=== PATIENT | male | born 1985 | race Two or more races ===

== ENCOUNTER 2021-04-06 21:14 | Emergency (ER) | payer OTHER ==
[2021-04-06 21:51] LABS: BASOPHILS % (AUTO) 0.2 %; EOSINOPHILS # (AUTO) 0.2 10^3/uL (0.0-0.7); EOSINOPHILS % (AUTO) 1.5 %; HCT - HEMATOCRIT 42.2 % (42.0-52.0); HGB - HEMOGLOBIN 14.2 g/dL (14.0-18.0); LYMPHOCYTES # (AUTO) 3.7 10^3/uL (1.5-3.5); LYMPHOCYTES % (AUTO) 26.4 %; MEAN CORPUSCULAR HEMOGLOBIN 30.3 pg (27.0-31.0); MEAN CORPUSCULAR HGB CONC 33.6 g/dL (32.0-36.0); MEAN CORPUSCULAR VOLUME 90.2 fL (80.0-94.0); MEAN PLATELET VOLUME 9.1 fL (7.4-11.4); MONOCYTES # (AUTO) 1.1 10^3/uL (0.0-1.0); MONOCYTES % (AUTO) 7.8 %; NEUTROPHILS % (AUTO) 63.7 %; PLT - PLATELET COUNT 355 10^3/uL (130-450); RED BLOOD COUNT 4.68 10^6/uL (4.70-6.10); RED CELL DISTRIBUTION WIDTH 14.3 % (12.0-15.0); WHITE BLOOD COUNT 14.1 x10^3/uL (4.8-10.8)
[2021-04-06 22:05] LABS: ALBUMIN 4.5 g/dL (3.2-5.5); ALBUMIN/GLOBULIN RATIO 1.5 (1.0-2.2); BILIRUBIN,TOTAL 0.6 mg/dL (0.2-1.0); CALCIUM 9.6 mg/dL (8.5-10.3); CREATININE 0.9 mg/dL (0.6-1.2); POTASSIUM 3.4 mmol/L (3.5-5.0); TOTAL PROTEIN 7.5 g/dL (6.7-8.2)
--- NOTE | 2021-04-06 23:58 | ED Physician Documentation ---
PD HPI ABD PAIN - Stated complaint Stated Complaint: ABD PX,FATIGUE - Chief complaint Chief Complaint: Abd Pain - History obtained from History obtained from: Patient - History of Present Illness Timing - onset: How many weeks ago (episodic x 1 week) Timing - details: Abrupt onset, Intermittant Pain level now: 6 Quality: Pain Location: Epigastric, LLQ Improved by: Other (nothing) Worsened by: Palpation Associated symptoms: No: Fever, Nausea, Vomiting, Diarrhea, Constipation - Additional information Additional information: chief c/o of abdominal pain. He describes episodic epigastric burning pain over past week, with several days of LLQ pain as well. He was recently seen at [facility] and was prescribed PPI. He also notes diffuse, nonpruritic rash although he has had the same rash episodically over past several weeks and has been evaluated for this without apparent diagnosis . Review of Systems Constitutional: reports: Reviewed and negative Cardiac: reports: Reviewed and negative Respiratory: reports: Reviewed and negative GI: reports: Abdominal Pain. denies: Nausea, Vomiting, Constipation, Diarrhea Skin: reports: Rash PD PAST MEDICAL HISTORY - Past Medical History Past Medical History: No - Past Surgical History Past Surgical History: No - Present Medications Home Medications: Ambulatory Orders Medication Instructions Recorded Confirmed Cetirizine [ZyrTEC] 10 mg PO ONCE 04/06/21 04/06/21 FLUoxetine [PROzac] 20 mg PO DAILY 04/06/21 04/06/21 Omeprazole 40 mg PO DAILY 04/06/21 04/06/21 - Allergies Allergies/Adverse Reactions: Allergies Allergy/AdvReac Type Severity Reaction Status Date / Time No Known Drug Allergies Allergy Verified 04/06/21 21:39 - Social History Does the pt smoke?: No Smoking Status: Never smoker Does the pt drink ETOH?: No Does the pt have substance abuse?: No - Immunizations Immunizations are current?: Yes - POLST Patient has POLST: No PD ED PE NORMAL - Vitals Vital signs reviewed: Yes - General General: Alert and oriented X 3, No acute distress, Well developed/nourished - HEENT HEENT: Moist mucous membranes - Neck Neck: Supple, no meningeal sign - Cardiac Cardiac: RRR, No murmur - Respiratory Respiratory: No respiratory distress, Clear bilaterally - Abdomen Abdomen: Soft, Non distended, Other (mild TTP LLQ without rebound or guarding. remainder of abdominal exam, including epigastrium, is nontender) PD ED PE EXPANDED - Derm Derm: Rash (diffuse flat erythematous macular exanthem on trunk, extremities; sparing of palms, soles, face/scalp) Results - Vitals Vitals: Oxygen O2 Source Room air - Labs Labs: Laboratory Tests 04/06/21 04/06/21 21:47 21:47 WBC 14.1 H RBC 4.68 L Hgb 14.2 Hct 42.2 MCV 90.2 MCH 30.3 MCHC 33.6 RDW 14.3 Plt Count 355 MPV 9.1 Neut # (Auto) 9.0 H Lymph # (Auto) 3.7 H Burnet # (Auto) 1.1 H Eos # (Auto) 0.2 Baso # (Auto) 0.0 Absolute Nucleated RBC 0.00 Nucleated RBC % 0.0 Sodium 139 Potassium 3.4 L Chloride 99 L Carbon Dioxide 28 Anion Gap 12.0 BUN 12 Creatinine 0.9 Estimated GFR (MDRD) 95 Glucose 94 Calcium 9.6 Total Bilirubin 0.6 AST 17 ALT 19 Alkaline Phosphatase 58 Total Protein 7.5 Albumin 4.5 Globulin 3.0 Albumin/Globulin Ratio 1.5 Lipase 28 - Rads (name of study) CT A/P with IV contrast Radiology: Prelim report reviewed, See rad report PD MEDICAL DECISION MAKING - ED course Complexity details: reviewed results, re-evaluated patient, considered differential, d/w patient ED course: patient says his rash is a recurrent/ongoing issue; I suspect this is unrelated to his abdominal complaints. No source/etiology for his abdominal pain is demonstrated on CT. An incidental finding of numerous liver lesions is noted, which radiologist interprets as "probably benign cysts and/or hamartomas". I reviewed these results with patient and instructed him to follow up with his primary care provider, as further tests might be needed regarding this CT finding. His epigastric burning might be due to PUD, GERD, gastritis. I encouraged him to follow up with his primary care for this as well, and to con tinue the PPI he was recently prescribed. He is in NAD on reevaluation Departure - Departure Disposition: 01 Home, Self Care Clinical Impression: Abdominal pain Qualifiers: Abdominal location: generalized Qualified Code(s): R10.84 - Generalized abdominal pain Condition: Good Instructions: ED Abdominal Pain Unkn Cause Follow-Up: NAY Patrick [Provider Group] Discharge Date/Time: 04/07/21 04:45
[2021-04-07] MEDS ORDERED: IOPAMIDOL-300 100 ML VIAL ONE (00:35)
[2021-04-07] MEDS ORDERED: IOPAMIDOL-300 100 ML VIAL IVP ONE (01:20)
[2021-04-07 04:19] VITALS: BP 129/78
--- NOTE | 2021-04-07 08:41 | CT Report ---
PROCEDURE: Abdomen/Pelvis W INDICATIONS: LLQ pain CONTRAST: IV CONTRAST: Isovue 300 ml: 100 PO CONTRAST: *NO PO CONTRAST TECHNIQUE: After the administration of intravenous contrast, 5 mm thick sections acquired from the diaphragms to the symphysis. 5 mm thick coronal and sagittal reformats were acquired. For radiation dose reducti on, the following was used: automated exposure control, adjustment of mA and/or kV according to misha ent size. COMPARISON: None. FINDINGS: Image quality: Excellent. ABDOMEN: Lung bases: There is left basilar atelectasis. Heart size is normal. Small hiatal hernia. Solid organs: Liver and spleen are normal in size and enhancement. There are multiple low density no dules in liver, most likely hepatic cysts; many lesions are too small to further characterize. Gallbl adder is normal. Biliary system is non dilated. Pancreas enhances normally. No adrenal nodules. K idneys demonstrate normal size and enhancement, without hydronephrosis. Peritoneum and bowel: Bowel loops demonstrate normal wall thickness and caliber. Normal appendix No free fluid or air. Nodes and vessels: No retroperitoneal or mesenteric adenopathy by size criteria. Aorta and inferior vena cava are normal in size. Miscellaneous: Tiny fat-containing umbilical hernia. PELVIS: Genitourinary: Bladder wall thickness is normal. Miscellaneous: No inguinal hernias or adenopathy. Bones: No suspicious bony lesions. No vertebral body compression fractures. [id number] degen erative disc disease in lumbar spine. There is a Schmorl's node in the inferior endplate of L1. IMPRESSION: 1. No acute abnormalities in abdomen or pelvis. 2. Multiple low-density nodules in liver are most likely hepatic cysts; many lesions are too small to further characterize, therefore, considered indeterminate. No significant discrepancy with the preliminary interpretation. Reviewed by: Twila Martinez MD on 04/07/2021 8:40 AM PDT Approved by: Twila Martinez MD on 04/07/2021 8:40 AM PDT Station ID: [id number]
== END 2021-04-07 04:45 | disposition home or self-care (01) ==
LOC: ED 21:14
DX: R10.84 Generalized abdominal pain (principal); R21 Rash and other nonspecific skin eruption; R93.2 Abnormal findings on diagnostic imaging of liver and biliary tract
CPT/HCPCS: 36415; 74177; 80053; 83690; 85025; 99284; Q9967

== ENCOUNTER 2023-11-30 12:45 | Outpatient (CLI) | payer OTHER ==
--- NOTE | 2023-11-30 13:28 | Sleep Patient Instructions ---
Sleep Center Visit Summary - Patient Visit Information Reason for Visit: Initial consult for evaluation of sleep disordered breathing and other sleep issues. - Patient Instructions Instructions Attached: Sleep Study Home Monitor Additional Instructions: You will be completing a sleep study, either an in-lab polysomnography (PSG) or home sleep study (HST). You will follow-up in the sleep care office after the sleep study is completed to hear the results and talk about therapy, if needed. You will be called by our office staff to schedule this appointment, but you may contact us with any questions. - Clinic Information Contact: [facility] [address] [place] [address] [email or web address] T: [phone]
--- NOTE | 2023-11-30 13:33 | SLEEP CARE CONSULTATION ---
Information from patient questionnaire entered by Ronda Brooks. I have reviewed and concur with the information entered by Ronda Brooks. This document represents the service I personally performed and the decisions made by me, Gosia Hatch ARNP. History of Present Illness Service Date and Time: 11/30/2023 1245 Reason for Visit: New patient Chief Complaint: reports: Insomnia, Snoring, Excessive daytime sleepiness, Fatigue Date of Onset: 2YRS Usual bedtime: 0300 Time it takes to fall asleep: 15-45MINS Snores at night: Yes Observed to quit breathing while asleep: No Sleeps alone due to snoring: No Number of times waking at night: 2-3 Reasons for waking at night: reports: Other (UNKNOWN). denies: Choking, Snoring, Gasping for air Toss, Turn, or Twitch while sleeping: Yes Recalls having dreams: Yes Usually gets out of bed at: 1100 Feels refreshed in the morning: No Morning headache: Yes (1-3 times a week, last about an hour) Sleepy or fatigued during the day: Yes Ever fallen asleep while driving: No Takes day naps: Yes (very seldom, 1-3 times a week maybe) Dreams during day naps: No Prior sleep studies: No Additional HPI information: I had the pleasure of seeing LUIGI FRANCO today regarding the possibility of him having a sleep disorder. His current complaints are insomnia, snoring, excessive daytime sleepiness and fatigue. He says 6 weeks ago his dentist told him his airway was very small and recommended that he have a sleep study. He was medically from the [place] last May. 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 He goes to sleep between 3-4 AM and gets up between 10-2 PM. He rarely feels rested when he gets up. He has been diagnosed with Porphyria. He says he snores and his has mentioned that she has heard his breath differently but has not thought he stopped breathing at night. - Parasomnia Symptoms Ever been unable to move upon waking from sleep: No Walks in sleep: No Talks in sleep: Yes Ever acted out dreams in sleep: No Ever felt weak in the knees when startled or emotional: Yes Bothered by creepy, crawly, restless sensations in legs: No Problems with memory or concentration: Yes (memory more recent, concentration a little bit) Subjective Initial [place] Sleepiness Scale score: 8 (11/30/2023) Past Medical History Past Medical History: reports: Anxiety, Other (Porphyria) Social History The patient's occupation is a AM. Patient is and lives in [place]. Have you smoked in the past 12 months: Yes Cigarettes per day (20/pack): 10 (working on quitting) Years of smokin Smoking Pack Years: 8.5 Alcohol use: Yes Alcohol amount and frequency: 1-2 drinks a day average Caffeine use: Yes Caffeine amount and frequency: 2 drinks daily, sometimes 3 Family History Family history of sleep disordered breathing: No Allergies and Home Medications Known drug allergies: No Drug allergies reviewed: Yes Home medication list reviewed: Yes (as listed) Allergy and home medication list: Allergies No Known Drug Allergies Allergy (Verified 11/28/23 10:16) Home Medications Medication Instructions Recorded Confirmed Last Taken Type Cetirizine [ZyrTEC] 10 mg PO ONCE 04/06/21 11/30/23 Unknown History FLUoxetine [PROzac] 20 mg PO DAILY 04/06/21 11/30/23 Unknown History Lactobacillus Combination No.4 See Rx Instructions .ROUTE .COMPLEX 11/30/23 11/30/23 Unknown History [Probiotic] Review of Systems Weight gain over past 5 years: 25 Weight loss over past 5 years: 20 Cardiovascular: reports: chest pain, irregular heart rate or pulse. denies: high blood pressure Respiratory: reports: wheeze Gastrointestinal: reports: heartburn, nausea, vomitting, diarrhea, abdominal pain Neurological: reports: headaches Psychiatric: reports: anxiety, depression Ear/Nose/Throat: reports: nasal congestion, sinus problems, wisdom teeth removed. denies: tonsillectomy Endocrine: reports: sluggishness Musculoskeletal: reports: joint pain, neck pain, back pain, joint swelling, muscle pain or cramping, mobility problems Immunologic: reports: rash, itching Physical Exam Vital signs obtained and entered by: RONDA Akers MA Blood Pressure: 129/84 (LEFT ARM) Cuff size: long Heart Rate: 88 O2 Saturation: 99 Height: 6 ft 0.25 in Weight: 244 lb 12.8 oz Body Mass Index: 32.9 BMI Classification: Obese Neck circumference: 17 Mouth and throat: narrow oropharynx Soft palate: long Hard palate: normal Uvula: normal Uvula visualization: 0% Mallampati Class IV Tongue: enlarged in size with teeth verduzco on lateral edges Tonsils: 2+ Neck: normal w/o lymphadenopathy or thyromegaly Heart: regular rate and rhythm Lungs: clear bilaterally Impression and Plan 1. Suspected Obstructive Sleep Apnea-Hypopnea Syndrome, as suggested by a history of loud and irregular snoring, morning headache, unrefreshed sleep, cognitive impairment, and excessive daytime sleepiness. Narrow oropharynx and obesity are common predisposing factors for obstructive sleep apnea-hypopnea syndrome. I recommend proceeding to polysomnography to confirm the diagnosis and to assess severity. If the patient has significant sleep disordered br eathing, a manual CPAP titration study will also be performed to find the optimal treatment pressure. I informed the patient of what the sleep studies involve and after some discussion, obtained agreement to proceed. The pathophysiology of obstructive sleep apnea-hypopnea syndrome was discussed with the patient and health risks of cardiovascular and cerebrovascular disease if not treated. Risks of drowsy driving discussed in detail and patient advised to avoid long distance driving and to insole tack puller hand at the first sign of drowsiness. Patient agreed to plan. * Schedule polysomnography. * Avoid long distance driving or driving when feeling sleepy. * Avoid alcohol, sedative and muscle relaxant around bedtime. * Attempt to lose weight. * Review instructions provided by trained office staff on how to prepare for the sleep study. * Return for follow-up after sleep study completed. Counseling Topics: Weight loss health impact Plan: PSG and followup Visit Type: In Office Time Spent with Patient (minutes): 38 Provider Statement: I spent 100% of the Face to Face Visit with the patient with greater than 50% spent counseling the patient and coordination of care.
[2023-11-30 14:13] VITALS: BP 129/84; O2SAT 99
== END 2023-11-30 12:46 | disposition home or self-care (01) ==
LOC: SC 12:45
PROVIDERS: ATTEND Nurse Practitioner Family
DX: G47.10 Hypersomnia, unspecified (principal); R06.83 Snoring; R51.9 Headache, unspecified; G47.8 Other sleep disorders; R41.89 Other symptoms and signs involving cognitive functions and awareness; F17.210 Nicotine dependence, cigarettes, uncomplicated; R53.83 Other fatigue; E66.9 Obesity, unspecified; Z68.32 Body mass index [BMI] 32.0-32.9, adult
CPT/HCPCS: 99203; 99212

== ENCOUNTER 2023-12-23 13:50 | Outpatient (CLI) | payer OTHER | END 2023-12-23 13:51 | disposition home or self-care (01) | LOC: SC 13:50 | PROVIDERS: ATTEND Nurse Practitioner Family | DX: G47.33 Obstructive sleep apnea (adult) (pediatric) (principal); R09.02 Hypoxemia; E66.9 Obesity, unspecified; Z68.33 Body mass index [BMI] 33.0-33.9, adult | CPT/HCPCS: 95806 ==

== ENCOUNTER 2024-01-25 14:36 | Outpatient (CLI) | payer OTHER ==
--- NOTE | 2024-01-25 15:04 | Sleep Patient Instructions ---
Sleep Center Visit Summary - Patient Visit Information Reason for Visit: Sleep study follow-up - Patient Instructions Instructions Attached: CPAP Additional Instructions: You are being started on CPAP therapy with pressure setting at 4-15 cmH2O. You will need to call the sleep care office to set up your follow up once you have your CPAP machine to check compliance and response to therapy at that time. You may call the office with any concerns about pressure feeling too low or too much for adjustment, if needed. You should contact DME supplier for any questions or concerns about mask or equipment. Please call office to schedule a follow up appointment in the sleep care office one month after obtaining new device. - Clinic Information Contact: [facility] [address] [place] [address] [email or web address] T: [phone]
--- NOTE | 2024-01-25 15:07 | SLEEP CARE CONSULTATION ---
Information from patient questionnaire entered by Radha Brooks. I have reviewed and concur with the information entered by Radha Brooks. This document represents the service I personally performed and the decisions made by me, Gosia Hatch ARNP. History of Present Illness Service Date and Time: 01/25/2024 1436 Initial [place] Sleepiness Scale score: 8 (11/30/2023) Current [place] Sleepiness Scale score: 8 (01/25/24) Additional HPI information: LUIGI FRANCO returns for follow up and results of the recently performed home sleep study. The sleep study done on 12/24/2023 showed moderate obstructive sleep apnea with an average AHI of 19.6 and cabrera oxygen saturation of 81%. I explained the pathophysiology behind obstructive sleep apnea. We then spent quite a bit of time discussing different treatment options. For mild obstru ctive sleep apnea, surgery and oral appliance are alternatives to nasal CPAP therapy but in moderate or severe cases, nasal CPAP is the most effective and reliable treatment. Because apnea is primarily in supine position, then positional management therapy could be effective. Methods discussed such as positioning with pillows, using a T-shirt with tennis balls in the back or commercial products that have a pillow format on back to prevent supine sleep. I reviewed the impact of weight changes on sleep apnea and strongly recommended losing weight. After some discussion, the patient opted to go with the nasal CPAP therapy. Nasal autoCPAP set at 4-15 cmH20 will be ordered with rationale explained. A manual titration study will be ordered if unable to find optimal pressure with office adjustments. I explained how CPAP machine works and what to expect when using the machine. Using CPAP every night in order to get used to it was emphasized. Patient advised to put CPAP mask on before getting into bed so as not to fall asleep without CPAP. To assist acclimation to CPAP use, it could also be used for a short time during day while reading or watching TV. The patient was instructed to call the CPAP supplier to discuss any mechanical problem that may occur. If the mask given is uncomfortable or is difficult to keep on through the night even with adjustment, contact the CPAP supplier as many will replace with another mask style if notified before 30 days. If snoring or perceives is not getting enough air or too much air from the machine, notify this office. Patient counseled not drink alcohol less than 4 hours before bedtime as it can increase snoring and apnea. Patient was cautioned about risks of drowsy driving until sleepiness symptoms resolve. Patient denies drowsy driving. Sleep Study - Results Type of Sleep Study: Home sleep study (COMPLETED 02/04/24) Prior sleep studies: No Polysomnography/Home Sleep Study results: Physician Impression: The quality of the study is good. The length of the study is adequate (> 240 minutes). Please also see the tabulated and graphic data. 1. Obstructive Sleep Apnea-Hypopnea (ICD-10 G47.33), moderate, with an AHI of 19.6/hr and cabrera SaO2 of 81%. During the study, the patient had 112 apneas (112 obstructive, 0 central, 0 mixed) and 46 hypopneas. The longest episode lasted 68.0 seconds. The respiratory events occurred more frequently during supine sleep (supine AHI was 45.5 and non-supine, 7.00). 2. Hypoxemia (ICD-10 R09.02), mild, with the lowest oxygen saturation of 81 % and 39.7 minutes with SaO2 under 90%. Baseline oxygen saturation was normal (Average oxygen saturation was 92%). Allergies and Home Medications Known drug allergies: No Drug allergies reviewed: Yes Home medication list reviewed: Yes (no changes) Allergy and home medication list: Allergies No Known Drug Allergies Allergy (Verified 01/23/24 08:02) Review of Systems Review of systems same as previous: Yes (NO CHANGE) Physical Exam Vital signs obtained and entered by: RADHA Akers MA Blood Pressure: 136/84 (RIGHT ARM) Cuff size: regular Heart Rate: 80 O2 Saturation: 100 Height: 6 ft 0.25 in Weight: 242 lb 9.6 oz Body Mass Index: 32.6 BMI Classification: Obese Impression and Plan 1. Obstructive Sleep Apnea-Hypopnea Syndrome, moderate, with lowest oxygen saturation of 81%. Obviously this is the cause of the patients symptoms of unrefreshed sleep, and excessive daytime sleepiness. Positive pressure therapy could benefit anxiety. As mentioned above, the patient will be started on nasal autoCPAP therapy with pressure set at 4-15 cmH2O. A manual titration study will be completed if unable to find optimal treatment pressure with office adjustments. Compliance guidelines also reviewed. A copy of compliance guidelines will be given for reference at check out. Because the apnea is more severe supine, I instructed to avoid sleeping supine using pillow positioning until able to start CPAP use. 2. Hypoxemia, mild, with a cabrera oxygen saturation of 81% and 39.7 minutes spent under 90%. The baseline oxygen saturation was normal with an average oxygen saturation of 92%. 3. Obesity, unspecified. Currently patients BMI is 32.7. Obesity increases the risk of apnea, CPAP pressure requirements and overall health risks especially cardiovascular and diabetes. Thus patient is advised to lose weight. * Nasal auto CPAP therapy, pressure at 4-15 cm H2O. * Attempt to lose weight. * Avoid alcohol consumption near bedtime. * Avoid supine sleep until using CPAP. * The patient is again cautioned about driving until sleepiness completely resolves. * Return one month after CPAP obtained. I will assess response to therapy and compliance at that time. Counseling Topics: Sleeping position, Weight loss health impact Prescriptions: Auto CPAP Plan: start CPAP and compliance followup Visit Type: In Office Time Spent with Patient (minutes): 20 Provider Statement: I spent 100% of the Face to Face Visit with the patient with greater than 50% spent counseling the patient and coordination of care.
[2024-01-25 15:09] VITALS: BP 136/84; O2SAT 100
== END 2024-01-25 14:37 | disposition home or self-care (01) ==
LOC: SC 14:36
PROVIDERS: ATTEND Nurse Practitioner Family
DX: G47.33 Obstructive sleep apnea (adult) (pediatric) (principal); R09.02 Hypoxemia; E66.9 Obesity, unspecified; Z68.32 Body mass index [BMI] 32.0-32.9, adult
CPT/HCPCS: 99212; 99213